=== PATIENT | male | born 1945 | race Caucasian/White ===

== ENCOUNTER 2024-04-27 16:42 | Emergency (ER) | payer MEDICARE, OTHER, SELFPAY ==
[2024-04-27 16:43] VITALS: BP 157/45; PULSE 51; RESP 16; TEMP 36.5; O2SAT 97; BMI 22.9
[2024-04-27 17:23] VITALS: PULSE 54; RESP 18; O2SAT 98
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
[2024-04-27 18:50] VITALS: BP 195/88; PULSE 53; RESP 16; TEMP 36.3; O2SAT 97
--- NOTE | 2024-04-27 19:05 | PD.EDMALE ---
ED Male Genitalurinary RME/HPI General Chief complaint: Urogenital-Male Stated complaint: Needs chapa cathetar insertion Time Seen by Provider: 04/27/24 18:15 Arrival date/time: 04/27/24 16:42 RME / HPI RME / HPI Narrative: Dr. Ramos?s Main ED Evaluation: 78yo male with a history of quadriparesis, hypotension, indwelling chapa catheter BIBA from home presents to the ED requesting aid with chapa catheter insertion. Patient states his was changing his chapa catheter at 1530 and was unable to insert it successfully. When she pulled out the chapa, the patient states he started having bright red bleeding with clots, so he came in for evaluation. Patient denies any abdominal pain, back pain, burning with urination or any other associated symptoms. Related Data Home Medications ?Medication ?Instructions ?Recorded ?Confirmed allopurinol 300 mg tablet 300 mg PO QDAY #0 tabs 07/21/14 05/29/23 (Zyloprim) zolpidem 10 mg tablet (Ambien) 10 mg PO HS #0 tabs 07/21/14 05/29/23 midodrine 2.5 mg tablet 2.5 mg PO TID 05/29/23 05/29/23 Previous Rx's ?Medication ?Instructions ?Recorded amoxicillin 875 mg-potassium 1 tab PO BID #30 tabs 06/02/23 clavulanate 125 mg tablet cephalexin 500 mg capsule 500 mg PO BID 10 days #20 caps 04/27/24 Allergies Allergy/AdvReac Type Severity Reaction Status Date / Time phenazopyridine Allergy Unknown ABD Verified 12/06/21 19:51 PAIN,N/V Sulfa (Sulfonamide Allergy Unknown Rash Verified 05/28/23 14:10 Antibiotics) sulfamethoxazole Allergy Unknown Rash Verified 05/28/23 14:10 morphine Allergy Hypotension Verified 05/28/23 16:45 Review of Systems Review of Systems Systems Reviewed: All systems reviewed, normal except as documented ED Exam Narrative Physical exam: GENERAL APPEARANCE: alert and oriented x 4, well-developed, well-nourished, no acute distress VITALS: All vitals were reviewed and the pulse ox is 97% on room air, which is normal according to my interpretation. HEENT: Normocephalic, atraumatic; pupils equal, round, reactive to light; EOMI; mucous membranes pink, moist; oropharynx clear NECK: Supple LUNGS: CTABL; no wheezes, no rales, no rhonchi HEART: Regular rate, regular rhythm; normal S1, S2; no murmurs ABDOMEN: non distended; normal BS; soft, no tenderness, no guarding, no rebound; no masses, no organomegaly, no hernia BACK: no CVA tenderness EXTREMITIES: atraumatic; no edema; spastic quadriparesis NEUROLOGIC: awake; alert and oriented x4; cranial nerves II-XII grossly intact; no focal sensory or motor deficits PSYCHIATRIC: appropriate mood and affect SKIN: warm, dry, normal color; no rashes Course Quality Measures none Orders Category Date Time Status Catheter [Urinary Catheter] QS Care 04/27/24 19:05 Completed Urinalysis, C/S if Indicated Stat Lab 04/27/24 20:20 Completed Urine Culture Stat Lab 04/27/24 20:20 Received Vital Signs Vital signs: Vital Signs Temperature 97.7 F 04/27/24 16:43 Pulse Rate 51 L 04/27/24 16:43 Respiratory Rate 16 04/27/24 16:43 Blood Pressure 157/45 H 04/27/24 16:43 Pulse Oximetry (%) 97 04/27/24 16:43 Oxygen Delivery Method Room Air 04/27/24 16:43 Urogenital - Male MDM Narrative MDM Narrative:: Scribe Attestation: 04/27/24 - Kelly Mullen am scribing for and in the presence of Dr. Ramos. The nurse was able to successfully place the chapa catheter. Patient is stable to be discharged home. Patient data External records reviewed:: [facility] previous records (Per chart review, patient was admitted here on 05/28/23 for SBO.) Clinical information provided by:: patient and spouse Social determinants that could affect healthcare access:: none Patient has the following chronic illnesses:: quadriparesis, gout, hypotension How is presenting disease/condition affected by chronic disease/condition?: uneffected by Evaluation data The following diagnostics were reviewed and interpreted by me:: lab results Lab and/or radiology exams considered but not ordered:: none Interpretation Summary: UA is positive for a UTI. Medications / Prescriptions Medications or Prescriptions considered but not ordered:: none Medication administrations:: see above, if any Consultations Consultation(s) initiated? (list below): No Diagnosis Urogenital Male Differential Diagnosis: urinary tract infection and other (urinary retention, chapa catheter malfunction) Most likely diagnosis given after review of the tests above:: see below Admission Indicated Admission indicated?: not indicated Admission Request Was there a request for admission?: No Disposition Plan Disposition Plan: Discharge Discharge Attestation Discharge Attestation: The patient and all family members were given an opportunity to ask questions and understood the discharge instructions. Discharge instructions specifically effects, indications for sooner follow up or return to the emergency department, and the expected course of current diagnosis. Patient condition: Stable Discharge Plan Plan Patient Disposition: HOME (Self Care) Disposition Comment: Stable for discharge home Patient condition on transfer: Stable Prescriptions/Referrals Prescriptions/Med Rec: New cephalexin 500 mg capsule 500 mg PO BID 10 Days Qty: 20 0RF No Action allopurinol [Zyloprim] 300 MG tablet 300 mg PO QDAY Qty: 0 zolpidem [Ambien] 10 MG tablet 10 mg PO HS Qty: 0 midodrine 2.5 mg tablet 2.5 mg PO TID Patient Comments: TAKE 1 TABLET BY MOUTH THREE TIMES A DAY amoxicillin-pot clavulanate 875-125 mg tablet 1 tab PO BID Qty: 30 0RF Referrals: Jose Lee DO [Primary Care Provider] - In 1 week Problem List Clinical Impression: Urinary tract infection, Encounter for Chapa catheter replacement, Chronic indwelling Chapa catheter Patient/Caregiver Discharge Instructions Discharge Activity: activity as tolerated Education Materials: Urinary Tract Infections in Men, ED Chapa Catheter, Care Additional Instructions: Please return to the emergency department for any worsening or any further medical problems and we will help you. Otherwise you should follow-up with your primary care doctor within the next several days Print Language: Bruneian Stand Alone Forms: Kathy Award Info., Patient Portal Info Letter
[2024-04-27 21:00] LABS: Collection Type, Urine Catheter; Squamous Epithelial Cell,Urine 0 /hpf (0-5)
[2024-04-27 21:09] LABS: Bilirubin,Urine Negative (Negative); Blood,Urine 1+ (Negative); Clarity,Urine Turbid (Clear/Hazy); Color,Urine Lt-Yellow (Lt Yel-Yel); Glucose, Urine Negative (Negative); Ketones,Urine Negative (Negative); Leukocyte Esterase,Urine Positive (Negative); Nitrite,Urine Negative (Negative); Protein,Urine Trace (Neg - Trace); Urobilinogen,Urine Negative mg/dL (0.0-1.0)
[2024-04-27 21:10] LABS: Bacteria,Urine Rare; Culture Indicated,Urine Yes; RBC,Urine 20 /hpf (0-3); WBC,Urine 148 /hpf (0-5)
[2024-04-27 22:00] VITALS: BP 100/64; PULSE 60; RESP 18; TEMP 36.7; O2SAT 97
== END 2024-04-27 22:20 | disposition home or self-care (01) ==
PROVIDERS: Emergency Provider Emergency Medicine; PCP Family Medicine
DX: Z46.6 Encounter for fitting and adjustment of urinary device (principal); N39.0 Urinary tract infection, site not specified
CPT/HCPCS: 51702; 81001; 87077; 87086; 87186; 99283